=== PATIENT | female | born 1985 ===

== ENCOUNTER 2019-07-08 13:22 | Inpatient (IN) | payer BC ==
[2019-07-08 16:46] VITALS: BMI 22.4
[2019-07-08] MEDS ORDERED: Ondansetron PF 4 MG/2 ML Vial IVP PRN (17:13)
[2019-07-08] MEDS ORDERED: Acetaminophen 325 MG TAB PO PRN (17:13)
[2019-07-08] MEDS ORDERED: Acetaminophen 650 MG Suppository PR PRN (17:13)
[2019-07-08 17:41] LABS: #Lymphocytes 1.1 thou/uL (1.20-3.40); #Monocytes 0.8 thou/uL (0.11-0.59); #Neutrophils 6.8 thou/uL (1.40-6.50); %Basophils 0.3 % (0.0-1.0); %Eosinophils 0.6 % (0.0-10.0); %Monocytes 8.8 % (0.0-10.0); %Neutrophils 77.4 % (42.0-75.0); Hemoglobin 13.8 g/dL (12.0-16.0); Mean Corpuscular HGB CONC 33.4 g/dL (32.0-36.0); Mean Corpuscular Hemoglobin 30.7 pg (27.0-31.0); Mean Corpuscular Volume 91.9 fL (78.0-98.0); Mean Platelet Volume 9.4 fL (7.4-10.4); Platelet Count 131 thou/uL (130-400); RBC Distribution Width 10.9 % (11.5-14.5); Red Blood Cell (RBC) Count 4.52 mill/uL (4.20-5.40); White Blood Cell (WBC) Count 8.8 thou/uL (4.8-10.8)
--- NOTE | 2019-07-08 17:47 | PDOC.HHP ---
Hospitalist HPI - History of Present Illness Abdominal Pain, N/V History of Present Illness: 34/F with PMH of IBS managed well by diet presents for abdominal pain x 2 days. Reports was in usual health yesterday morning, when she developed epigastric pain while drinking her morning coffee. Reports some associated nausea, denies vomiting at that time. After having a normal BM, she decided she would go to work. At work, she thought she was having indigestion, so she took TUMS, which gave her no relief of symptoms, so she went home around noon. At home, she had a doctor perform a house call. The doctor prescribed pepcid, thinking symptoms were consistent with indigestion. Throughout the evening the epigastric pain persisted, began radiating to her back, she had associated nausea and developed vomiting, unable to tolerate any oral intake. Denies hematemesis and diarrhea. Denies dysuria and hematuria, Denies fever and chills. Subsequently, she decided to go to [facility] for further evaluation today. ED Course: [facility] workup: EKG SB HR 40s CT abdomen/pelvis 1. Small bowel obstruction, the transition point is in the left mid abdomen. There is stool formation in the small bowel loops. The small bowel loops are dilated to 3.8cm. 2. Heterogeneous appearance of liver, correlate for right heart dysfunction, this could be secondary to passive congestion. 3. Minimal pelvic free fluid likely physiologic. 4. Right ovarian cyst, follow-up ultrasound is recommended in 8-12 weeks to asses for resolution WBC 7.4 Hgb 13.6 Hct 40.3 Plat. 153 Na 139 K 4.1 CL 106 CO2 28 BUN 11 Creatinine 0.4 Glucose 95 UA unremarkable hCG negative NGT inserted Morphine and Zofran GI cocktail Hospitalist ROS - Review of Systems Constitutional: denies: fever, chills Eyes: denies: vision change, conjunctivae inflammation ENT: denies: nose congestion, mouth swelling Respiratory: denies: shortness of breath, hemoptysis Cardiovascular: denies: chest pain, palpitations, edema, light headedness Gastrointestinal: reports: nausea, vomiting, abdominal pain. denies: diarrhea, constipation, melena, hematochezia Genitourinary: denies: dysuria, hematuria Skin: denies: rash, lesions Neurological: denies: weakness, change in speech Hospitalist History - Past Medical History Cardiac: reports: no pertinent history Pulmonary: reports: no pertinent history [employer]IVERY: reports: no pertinent history Gastrointestinal: reports: Other (IBS) Heme/Onc: reports: no pertinent history Hepatobiliary: reports: no pertinent history Psych: reports: no pertinent history Musculoskeletal: reports: no pertinent history Rheumatologic: reports: no pertinent history Infectious Disease: reports: no pertinent history ENT: reports: no pertinent history Renal/: reports: no pertinent history Endocrine: reports: no pertinent history Dermatology: reports: no pertinent history - Past Surgical History Past Surgical History: reports: no pertinent history - Family History Family History: reports: Other Other Family History: MGF celiac disease - Social History Smoking Status: Never smoker Alcohol: reports: Occassional Drugs: reports: none Living Situation: Roommate (Lives in [place]) Occupation: Works at a [employer] Activity level: independent ambulation - Exam General Appearance: NAD, awake alert Eye: anicteric sclera ENT: normocephalic atraumatic, no oropharyngeal lesions ENT - other findings: NGT in place Neck: supple, no lymphadenopathy Heart: RRR, no murmur, no gallops, no rubs, normal peripheral pulses Respiratory: CTAB, no wheezes, no rales, no ronchi Gastrointestinal: soft, non-tender, non-distended, normal bowel sounds, no guarding, no rigidity Extremities: no cyanosis, no clubbing Skin: no lesions, no rashes Neurological: cranial nerve grossly intact, no focal deficits Musculoskeletal: normal tone, normal strength Psychiatric: normal affect, A&O x 3 Hospitalist Results - Labs Result Diagrams: 07/10/19 05:26 07/10/19 05:26 - Radiology Interpretation CT scan - abdomen Status: report reviewed by ne Hospitalist H&P A/P - Plan Plan: Impression: Acute Small Bowel Obstruction Bradycardia, baseline per patient IBS Right ovarian cyst (incidental finding) Plan: NPO NGT low intermittent suction Consult general surgery IVF Analgesia and anti emetics GI prophylaxis Full Code.
--- NOTE | 2019-07-08 17:54 | RAD ---
PA AND LATERAL CHEST: 07/08/19 HISTORY: NG tube placement. Heart size and mediastinum within normal limits. The lungs are clear of infiltrates. NG tube is seen with the tip in the stomach. IMPRESSION: No active intrathoracic disease. POS: [facility]
[2019-07-08 17:59] LABS: BHCG - Serum Negative (NEGATIVE); Lactic Acid 0.8 mmol/L (0.5-2.2); Pregs Control Background? CLEAR/WHITE (CLR/WHITE); Pregs Control Bar Appear? YES (CONTROL BAR)
[2019-07-08 18:04] LABS: Lipase 16 U/L (8-78); Magnesium 1.7 mg/dL (1.6-2.6); Phosphorus 3.8 mg/dL (2.3-4.7)
[2019-07-08 18:07] LABS: ALT (SGPT) 12 U/L (8-55); AST (SGOT) 16 U/L (5-34); Albumin 4.3 g/dL (3.5-5.0); Alkaline Phosphatase 50 U/L (40-110); Anion Gap 11 mmol/L (10-20); BUN (Urea Nitrogen) 10 mg/dL (7.0-18.7); Bilirubin, Total 1.3 mg/dL (0.2-1.2); Calc. Creatinine Clearance 102 mL/min (70-130); Calcium 9.4 mg/dL (7.8-10.44); Carbon Dioxide 29 mmol/L (22-29); Chloride 103 mmol/L (98-107); Estimated GFR-MDRD 73; Globulin 2.6 g/dL (2.4-3.5); Glucose 87 mg/dL (70-105); Potassium 4.6 mmol/L (3.5-5.1); Protein, Total 6.9 g/dL (6.0-8.3); Sodium 138 mmol/L (136-145)
[2019-07-08] MEDS: D5 1/2 NS w/20 mEq KCL 1,000 ML IV SCH (18:26)
[2019-07-08] MEDS: Morphine 2 MG/ML SYRINGE SLOW IVP PRN ×2 (18:34→18:38)
[2019-07-08] MEDS: Famotidine/PF 20 mg/2ml Vial SLOW IVP SCH (21:33)
[2019-07-09] MEDS: D5 1/2 NS w/20 mEq KCL 1,000 ML IV SCH ×3 (04:47→15:38)
[2019-07-09] MEDS: Famotidine/PF 20 mg/2ml Vial SLOW IVP SCH ×2 (08:29→23:14)
[2019-07-09] MEDS: Ketorolac Tromethamine 30 MG/ML VIAL IVP PRN ×2 (09:28→15:39)
--- NOTE | 2019-07-09 17:15 | CON ---
DATE OF CONSULTATION: 07/09/2019 CHIEF COMPLAINT: Bowel obstruction. HISTORY OF PRESENT ILLNESS: This is a 34-year-old female who presents with a history of cramping, vomiting and nausea yesterday evening. This started after she was drinking coffee on an empty stomach yesterday morning. She was seen in the freestanding emergency room where CT scan showed question of small-bowel obstruction, admitted with an NG tube. Her pain is resolved. She denies nausea. She had a bowel movement yesterday and she is passing small amounts of gas now. She denies significant constipation. She has irritable bowel disease, but no history of inflammatory bowel disease. No previous abdominal surgery. PAST MEDICAL HISTORY: She denies. PAST SURGICAL HISTORY: She denies. MEDICATIONS: Medicines taken daily, none. ALLERGIES: NO KNOWN DRUG ALLERGIES. SOCIAL HISTORY: No smoking or alcohol or other drugs. REVIEW OF SYSTEMS: Ten-system review of systems is otherwise negative unless described above. PHYSICAL EXAMINATION: VITAL SIGNS: Pulse is 61, blood pressure is 107/59, respirations are 20, she is afebrile. HEENT: Sclerae are anicteric. Oropharynx clear. NECK: No lymphadenopathy. CHEST: Clear. HEART: Regular rate. ABDOMEN: Soft, nondistended, nontender. Occasional bowel sounds. EXTREMITIES: No ischemia or edema to extremities. LABORATORY DATA: Sodium 138, potassium 4.6, bilirubin is 1.3, otherwise all labs normal including creatinine. White blood cell count is 8, hemoglobin 13, platelet count is 131. CT scan shows some dilated intestine, fecalization of the terminal ileum as well as moderate amount of stool in the right colon. There is passive congestion of the liver. ASSESSMENT: Abdominal pain associated with nausea, vomiting. CT shows some dilated intestine, but moderate amount of stool fecalization of the terminal ileum. PLAN: I do not think she has significant bowel obstruction. She has minimal NG output and it looks more like saliva, it is non-bilious. Her belly is soft and nontender. Her labs are all normal. She is not tachycardic. My plan would be to continue supportive care tonight. Gastrografin small bowel follow-through tomorrow. We will follow with you. Job ID: [id number]
--- NOTE | 2019-07-09 18:38 | PDOC.HOSPP ---
- Subjective Encounter Date: 07/09/19 Encounter Time: 15:30 Subjective: Patient seen and examined for SBO. Abd pain improving. No fever/chills/N/V. No new complaints. No overnight events - Objective Vital Signs & Weight: Vital Signs (12 hours) Temp Pulse Resp BP Pulse Ox 07/09/19 16:26 98.7 F 61 20 107/59 L 98 07/09/19 11:16 98.4 F 49 L 20 114/69 98 07/09/19 08:30 97 07/09/19 07:45 98.3 F 56 L 14 116/71 97 07/09/19 07:24 98.3 F 56 L 20 116/71 97 Weight Admit Weight 161 lb Weight 161 lb I&O: 07/08/19 07/09/19 07/10/19 06:59 06:59 06:59 Intake Total 1200 950 Output Total 280 520 Balance 920 430 Result Diagrams: 07/08/19 17:31 07/08/19 17:31 Radiology Reviewed by me: No (CT - SBO) EKG Reviewed by me: Yes (SR) Hospitalist ROS - Review of Systems Respiratory: denies: cough, dry, shortness of breath, hemoptysis, SOB with excertion, pleuritic pain, sputum, wheezing, other - Medication Medications: Active Medications Generic Name Dose Route Start Last Admin Trade Name Freq PRN Reason Stop Dose Admin Famotidine 20 mg 07/08/19 21:00 07/09/19 08:29 Pepcid SLOW IVP 20 mg Q12HR FERMIN Administration Potassium Chloride/Dextrose/Sod Cl 1,000 mls @ 125 mls/hr 07/09/19 15:19 15:38 D5 1/2 Ns W/20 Meq Kcl IV Not Given .Q8H FERMIN Ketorolac Tromethamine 15 mg 07/09/19 08:52 07/09/19 15:39 Toradol IVP 07/14/19 08:53 15 mg Q6H PRN Administration Pain Morphine Sulfate 2 mg 07/08/19 17:51 07/08/19 18:38 Morphine SLOW IVP 2 mg Q4H PRN Administration Pain Sodium Chloride 10 ml 07/08/19 17:13 07/09/19 08:29 Flush - Normal Saline IVF 10 ml Q12H PRN Administration Saline Flush - Exam General Appearance: NAD Heart: RRR, no gallops, no rubs Respiratory: no wheezes, no rales, no ronchi Gastrointestinal: non-tender, non-distended, normal bowel sounds Extremities: no cyanosis Hosp A/P - Plan DVT proph w/SCDs SBO IBS Dehydration Abn Liver on CT scan PLAN: Await Surgery input Cont NG tube suction Increase IVF AM labs Cont other meds Consult GI
[2019-07-10] MEDS: D5 1/2 NS w/20 mEq KCL 1,000 ML IV SCH ×4 (00:28→15:08)
[2019-07-10] MEDS: Cepastat Lozenges 1 LOZ PO PRN ×2 (01:40→06:13)
[2019-07-10 06:12] LABS: #Eosinphils 0.1 thou/uL (0.0-0.7); #Lymphocytes 1.1 thou/uL (1.20-3.40); #Monocytes 0.8 thou/uL (0.11-0.59); %Eosinophils 1.4 % (0.0-10.0); %Lymphocytes 18.6 % (21.0-51.0); %Monocytes 12.8 % (0.0-10.0); %Neutrophils 67.2 % (42.0-75.0); Hemoglobin 12.6 g/dL (12.0-16.0); Mean Corpuscular HGB CONC 33.4 g/dL (32.0-36.0); Mean Corpuscular Hemoglobin 31.1 pg (27.0-31.0); Mean Corpuscular Volume 93.2 fL (78.0-98.0); Mean Platelet Volume 9.9 fL (7.4-10.4); Platelet Count 101 thou/uL (130-400); RBC Distribution Width 10.8 % (11.5-14.5); Red Blood Cell (RBC) Count 4.03 mill/uL (4.20-5.40)
[2019-07-10 06:13] LABS: Platelet Morphology Comment Appears Decreased
[2019-07-10 06:15] LABS: ALT (SGPT) 9 U/L (8-55); AST (SGOT) 13 U/L (5-34); Albumin 3.6 g/dL (3.5-5.0); Alkaline Phosphatase 43 U/L (40-110); Anion Gap 7 mmol/L (10-20); BUN (Urea Nitrogen) 7 mg/dL (7.0-18.7); Bilirubin, Total 1.1 mg/dL (0.2-1.2); Calc. Creatinine Clearance 111 mL/min (70-130); Calcium 8.4 mg/dL (7.8-10.44); Carbon Dioxide 29 mmol/L (22-29); Chloride 108 mmol/L (98-107); Estimated GFR-MDRD 80; Globulin 2.4 g/dL (2.4-3.5); Glucose 100 mg/dL (70-105); Magnesium 1.8 mg/dL (1.6-2.6); Phosphorus 3.1 mg/dL (2.3-4.7); Sodium 140 mmol/L (136-145)
--- NOTE | 2019-07-10 07:38 | CON ---
DATE OF CONSULTATION: 07/09/2019 REASON FOR CONSULTATION: Partial bowel obstruction, questionable abnormality of the liver, increased heterogenicity per outside CAT scan. HISTORY OF PRESENT ILLNESS: Ms. Little is a 34-year-old female, who was in good health until 2 days before my evaluation when she awoke Saturday and had some vague abdominal discomfort in the epigastrium with drinking coffee. She thought maybe her coffee was too bitter, but she noticed it kind of worsened throughout the day and began to radiate around the side to the mid back. She kind of stayed on liquids that day and ultimately tried to eat a little bit later on that night and threw up. She felt a little bit better after that, but this pain continued along. The next morning, she had a little bit of emesis as well, so she went to the emergency room. She ended up going to [facility], where she was evaluated with labs that were essentially normal and ultimately had a CAT scan that showed some dilated small bowel loops with a transition zone in the mid small bowel with some fecalization of bowel loops. Also, there was a comment that there was some heterogenicity to the liver and the radiologist recommended ruling out passive congestion of the liver or right heart problems. The patient ultimately had an NG tube placed and had a liter or so out of her NG tube and was transferred to this facility. She arrived here yesterday around 3 o'clock and states that she had no pain. She has had no bowel movements. She had maybe a slight bit of flatus this morning. This afternoon, she was seen by General Surgery who was consulted, and I was asked to see her as well. She denies any fever or chills. She denies any similar events like this in the past. She has had no prior surgeries. She did have a diagnosis of IBS with her primary physician about 4 years ago when she was having bloating, gas, sometimes diarrhea and lower abdominal cramping. With elimination diet, she identified a few things that bother her and by avoiding those, she does quite well. She has had no weight loss, rashes, myalgias, or arthralgias. Presently, she is without complaints. Her pain is resolved. At the outside facility, her white count was 7.4, hemoglobin 13.6, platelet count 153. Basic metabolic profile normal. There was normal lipase. Negative test. PAST MEDICAL HISTORY: Otherwise, negative. PAST SURGICAL HISTORY: Negative. PSYCHIATRIC HISTORY: Negative. FAMILY HISTORY: Negative for celiac, Crohn's, colitis, or cancer. Possibly, her maternal grandfather had some type of food allergies. SOCIAL HISTORY: She does not smoke. She drinks occasionally. She does not use drugs. She has a roommate and lives in [place]. She works at a [employer]. She is quite active. REVIEW OF SYSTEMS: Negative for dysphagia, odynophagia, melena, hematochezia, hematemesis, rashes, myalgias, arthralgias, weight gain, weight loss, fever, chills, thyroid disorders, dysuria, frequency, urgency, shortness of breath, cough, dyspnea on exertion or chest pain. MEDICATIONS: Here, 1. Toradol. 2. Pepcid. 3. Tylenol. 4. D5 half-normal saline at 125 an hour. PHYSICAL EXAMINATION: VITAL SIGNS: She is resting comfortably in bed, sitting up. She has friends at the bedside. GENERAL: Temperature is 98.7, pulse 61, blood pressure 107/59 to 116/71. HEENT: Oropharynx, no lesions. NECK: Supple without adenopathy. NG tube seems to be a long distance outside the nose. She just states it does not bother her. LUNGS: Clear. ABDOMEN: Soft, nontender. There is no palpable hepatosplenomegaly. There is no shifting dullness or fluid wave. There are no incisions on the abdominal wall. There is no inguinal adenopathy. There is no rebound or guarding. EXTREMITIES: Negative. SKIN: Normal. LABORATORY DATA: White count was 8.9 yesterday, hemoglobin 13.8, platelet count 131. Comprehensive metabolic profile normal. Bilirubin is 1.3, phosphorus 3.8, magnesium 1.7. Lactic acid 0.8. BMP normal. Lipase 16. Celiac testing negative [place] [address] Stauffer. Previous H pylori antibodies negative in 2015. Abdominal films reviewed with Radiology from the outside facility on a CD. ASSESSMENT: The patient presented with epigastric pain 2 days ago with some vomiting. Ultimately, she had a CAT scan at an outside ER that showed some small bowel dilatation, fecalization in distal small bowel loops and transitional zone in the distal to mid small bowel consistent with a partial or complete bowel obstruction. She has no antecedent history to give her a cause for bowel obstruction. Inflammatory bowel disease such as Crohn's would be a consideration, although she has no findings in her labs, her physical, or history to indicate a colonic disorder. She shows no signs of malnutrition or anemia. Malignancy is less likely. Possible parasitic infection related to anisakiasis is something to consider, as she had sushi before she became ill and had severe epigastric pain radiating to her back. She has no eosinophilia, however. RECOMMENDATIONS: 1. Agree with plans for a Gastrografin follow-through tomorrow. Continue IV fluids. We will re-evaluate in the morning. 2. Advance NG tube about 10-15 cm to make sure it is in the stomach. Job ID: [id number]
--- NOTE | 2019-07-10 11:21 | RAD ---
Exam: Small bowel series: HISTORY: Small bowel obstruction FINDINGS: Gastrografin is introduced per the NG tube. Examinations are performed without to 1 hour. Dilute Guillermina rografin contrast has passed throughout the small bowel entering the colon by 30 minutes. No evidence for significant bowel obstruction. IMPRESSION: Unremarkable Gastrografin small bowel study with contrast entering the colon by 30 minutes without ev idence for significant small bowel obstruction.
[2019-07-10] MEDS: Famotidine/PF 20 mg/2ml Vial SLOW IVP SCH (11:35)
--- NOTE | 2019-07-10 12:27 | PRG ---
DATE OF SERVICE: 07/10/2019 SUBJECTIVE: Ms. Little has no pain today. She has finished her Gastrografin small-bowel follow-through. She has already had some bowel movements. The small bowel follow-through was normal. OBJECTIVE: VITAL SIGNS: She is afebrile. Her vital signs are stable. CHEST: Clear. ABDOMEN: Soft, nontender, and nondistended. ASSESSMENT: Abdominal cramping pain to the back associated with nausea and vomiting with evidence of small bowel obstruction on CT, now with normal small-bowel follow-through. PLAN: I removed the NG tube. We will start a liquid diet as tolerated. She could probably be discharged home later today if this is not a small bowel obstruction. If she has persistent upper abdominal symptoms, the next step would likely be outpatient upper endoscopy by Dr. Van, so I will arrange for followup with him when she leaves. I gave her my number to call me with any questions or concerns. Job ID: [id number]
--- NOTE | 2019-07-10 13:48 | PDOC.HOSPP ---
- Subjective Encounter Date: 07/10/19 Encounter Time: 08:30 Subjective: Patient seen and evaluated for epigastric pain, Nausea and vomiting. States feeling much better after advancing NGT. Passing flatus, no BM. Denies abdominal pain, nausea and vomiting at this time. No overnight events. - Objective Vital Signs & Weight: Vital Signs (12 hours) Temp Pulse Resp BP Pulse Ox 07/10/19 11:22 98.4 F 52 L 17 123/75 99 07/10/19 07:16 98.7 F 54 L 18 116/72 96 07/10/19 05:00 98.5 F 52 L 20 129/77 95 Weight Admit Weight 161 lb Weight 161 lb I&O: 07/09/19 07/10/19 07/11/19 06:59 06:59 06:59 Intake Total 2737 252 6161 Output Total 280 520 400 Balance 047 006 9145 Result Diagrams: 07/10/19 05:26 07/10/19 05:26 Hospitalist ROS - Review of Systems Constitutional: denies: fever, chills Respiratory: denies: cough, shortness of breath Cardiovascular: denies: chest pain, palpitations Gastrointestinal: denies: nausea, vomiting, abdominal pain - Medication Medications: Active Medications Generic Name Dose Route Start Last Admin Trade Name Freq PRN Reason Stop Dose Admin Famotidine 20 mg 07/08/19 21:00 07/10/19 11:35 Pepcid SLOW IVP 20 mg Q12HR FERMIN Administration Potassium Chloride/Dextrose/Sod Cl 1,000 mls @ 125 mls/hr 07/09/19 15:19 11:35 D5 1/2 Ns W/20 Meq Kcl IV 1,000 mls .Q8H FERMIN Administration Ketorolac Tromethamine 15 mg 07/09/19 08:52 07/09/19 15:39 Toradol IVP 07/14/19 08:53 15 mg Q6H PRN Administration Pain Morphine Sulfate 2 mg 07/08/19 17:51 07/08/19 18:38 Morphine SLOW IVP 2 mg Q4H PRN Administration Pain Sodium Chloride 10 ml 07/08/19 17:13 07/09/19 08:29 Flush - Normal Saline IVF 10 ml Q12H PRN Administration Saline Flush Throat Lozenges 1 ilana 07/10/19 00:54 07/10/19 06:13 Cepastat Lozenges PO 1 ilana Q2H PRN Administration Sore Throat - Exam General Appearance: NAD, awake alert Eye: negative: anicteric sclera Heart: RRR, no murmur, no gallops, no rubs, normal peripheral pulses Respiratory: CTAB, no wheezes, no rales, no ronchi Gastrointestinal: soft, non-tender, non-distended, normal bowel sounds, no guarding, no rigidity Extremities: no clubbing, no edema Skin: no lesions, no rashes Hosp A/P - Plan GI proph Epigastric pain Nausea and vomiting SBO Bradycardia - stable Right ovarian cyst IBS - chronic Plan: Schedule for small bowel follow through Continue IVF Continue NGT to suction NPO with ice chips Anti emetics and analgesics prn GI prophylaxis Recommend follow up imaging in 2-3 months for right ovarian cyst
[2019-07-10] MEDS ORDERED: MD-Gastroview 120 ML BOT ONE (14:41)
[2019-07-10 15:44] VITALS: BP 115/72; TEMP 98.8
--- NOTE | 2019-07-10 16:04 | PRG ---
DATE OF SERVICE: 07/10/2019 SUBJECTIVE: Ms. Little feels much better today. Small-bowel follow-through showed no evidence of bowel obstruction. OBJECTIVE: VITAL SIGNS: Temperature is 98, pulse 52, and blood pressure 129/75. LUNGS: Clear. HEART: Regular with no extra murmurs. ABDOMEN: Soft and nontender. LABORATORY DATA: White count 6, hemoglobin 12, and platelet count 101. Sodium 140, potassium 4, BUN and creatinine are 7 and 0.8. Liver function tests normal. Small bowel follow-through today was normal. ASSESSMENT: 1. Severe epigastric pain, resolved. 2. CT concerning for possible small bowel obstruction with transition zone or partial obstruction that does not seem that the Gastrografin goes through without difficulty entering the colon by 30 minutes. PLAN: Agree with advancing diet as per Dr. Shelby. The patient shows no signs of sepsis and nontender abdomen. Normal labs. This likely was infectious. It did start after eating out with sushi and may have been infection secondary to that. I think if she tolerates food, she can go to home later this evening or tomorrow morning. She should follow up in my office in 1 to 2 weeks or sooner if she has recurrent epigastric pain. I have recommended that if she has recurrent epigastric pain, use Prilosec and will go from there. If she is in the hospital, we can re-evaluate her tomorrow. Job ID: [id number]
--- NOTE | 2019-07-10 19:18 | DIS ---
DATE OF ADMISSION: 07/08/2019 DATE OF DISCHARGE: 07/10/2019 DISCHARGE DISPOSITION: Home. FOLLOWUP: Follow up with primary care physician, Dr. Calvin in 1 week. BRIEF HOSPITAL COURSE: The patient is a 34-year-old female, who presented to the emergency room with abdominal discomfort along with nausea and vomiting. She initially presented to [facility] and was transferred to this facility. Her workup at [facility] was consistent with small bowel obstruction with transition point in the left mid abdomen. She was managed conservatively with NG tube suctioning along with IV fluids. Today, she underwent Gastrografin small bowel study, which was negative for obstruction. An NG tube has been discontinued. She appears stable for discharge. FINAL DIAGNOSES: 1. Severe epigastric pain secondary to small bowel obstruction, resolved. 2. Nausea and vomiting, resolved. 3. Chronic sinus bradycardia. 4. Right ovarian cyst. 5. History of irritable bowel syndrome. 6. Abnormal LFTs of unclear etiology, resolved. 7. Chronic kidney disease, stage 2. 8. Thrombocytopenia with platelet of 101, at discharge. Repeat labs after 1 week are recommended. Primary care physician advised to follow. The patient understands the above plan of care. Job ID: [id number]
--- NOTE | 2019-07-13 00:03 | EKG ---
Test Reason : ROUTINE Blood Pressure : / mmHG Vent. Rate : 052 BPM Atrial Rate : 052 BPM P-R Int : 150 ms QRS Dur : 092 ms QT Int : 418 ms P-R-T Axes : 063 051 026 degrees QTc Int : 388 ms Sinus bradycardia with sinus arrhythmia Possible Left atrial enlargement Borderline ECG No previous ECGs available Confirmed by Brad DIETZ ([id number]) on 07/13/2019 12:02:59 AM Referred By: PALOMA Confirmed By:Brad DIETZ
== END 2019-07-10 18:19 | disposition home or self-care (01) | DRG 390 ==
LOC: T4-A 15:47
PROVIDERS: ADMIT Internal Medicine; ATTEND Internal Medicine
DX: K56.609 Unspecified intestinal obstruction, unspecified as to partial versus complete obstruction (principal); R00.1 Bradycardia, unspecified; N83.201 Unspecified ovarian cyst, right side; R79.89 Other specified abnormal findings of blood chemistry; N18.2 Chronic kidney disease, stage 2 (mild); D69.6 Thrombocytopenia, unspecified; K58.9 Irritable bowel syndrome, unspecified; E86.0 Dehydration
CPT/HCPCS: 36415; 71046; 74250; 80053; 83605; 83690; 83735; 83880; 84100; 84703; 85025; 93005; 93010; J1885; J2270; Q9963; S0028